=== PATIENT | female | born 1950 | race Caucasian/White ===

== ENCOUNTER 2017-06-21 13:09 | Emergency (ER) | payer OTHER ==
[~2017-06-21] VITALS: Ht 154.9 cm; Wt 68.0 kg
[~2017-06-21 13:09] MED LIST: ADVAIR 2501 DISK W/1; DIABETA5 MG; IBANDRONATE SO150 MG; JANUVIA50 MG; JENTADUETO 2.51 EAC2; LIPITOR20 MG; ZAFIRLUKAST20 MG
[2017-06-21] MEDS ORDERED: ATORVASTATIN CA10 MG (13:57)
[2017-06-21] MEDS ORDERED: IRBESARTAN-HCT1 EAC1 (13:58)
== END 2017-06-21 18:06 | disposition home or self-care (01) ==
LOC: ER 13:09
DX: S00.83XA Contusion of other part of head, initial encounter (principal); W26.8XXA Contact with other sharp object(s), not elsewhere classified, initial encounter; Y93.89 Activity, other specified; Y92.018 Other place in single-family (private) house as the place of occurrence of the external cause; Y99.8 Other external cause status

== ENCOUNTER 2018-01-25 15:41 | Emergency (ER) | payer OTHER ==
[~2018-01-25] VITALS: Ht 154.9 cm; Wt 77.1 kg
[~2018-01-25 15:41] MED LIST changes: +ATORVASTATIN CA10 MG; +IRBESARTAN-HCT1 EAC1
[2018-01-25] MEDS ORDERED: HYDROCODON-ACE1 EACH (16:16)
[2018-01-25] MEDS ORDERED: METFORMIN HCL500 MG (16:16)
[2018-01-25] MEDS ORDERED: ADVAIR 100-501 EACH (16:17)
[2018-01-25] MEDS ORDERED: PROVERA2.5 MG (16:17)
== END 2018-01-25 18:45 | disposition home or self-care (01) ==
LOC: ER 15:41
DX: S61.212A Laceration without foreign body of right middle finger without damage to nail, initial encounter (principal); W26.8XXA Contact with other sharp object(s), not elsewhere classified, initial encounter; Y93.89 Activity, other specified; Y92.018 Other place in single-family (private) house as the place of occurrence of the external cause; Y99.8 Other external cause status